=== PATIENT | male | born 1950 | race Caucasian/White ===

== ENCOUNTER 2024-07-24 04:15 | Inpatient (IN) | payer MEDICARE, SELFPAY ==
[2024-07-24] VITALS (18 sets, daily range): BP systolic 93–119; BP diastolic 53–70; PULSE 75–115; TEMP 36.6–37.3; O2SAT 90–98; BMI 29.2; BMI 27.0
--- NOTE | 2024-07-24 04:35 | PC.NURSE ---
complains of fever,chills, body aches and diarrhea onset 1or 2 days ago
[2024-07-24 04:48] LABS: Influenza Virus A Antigen Negative; Influenza Virus B Antigen Negative; Internal Control Within Normal Limits; SARS-CoV-2 Ag POSITIVE (NEGATIVE)
--- NOTE | 2024-07-24 05:08 | XR_ITS ---
The [address] [address] Patient Name: ANJELICA HOLLEY MRN: [id number] date: 1950 Sex: M Assigned Patient Location: ER Current Patient Location: ER Accession/Order Number: [id number] Exam Date: 07/24/2024 05:18 Report Date: 07/24/2024 05:42 At the request of: MOHAN VALENZUELA Procedure: XR chest 1V EXAM: XR chest 1V HISTORY: cough COMPARISON: None. TECHNIQUE: AP erect portable chest radiograph performed. FINDINGS: The trachea is unremarkable. There is mild prominence of the cardiac silhouette. There is mild left infrahilar interstitial infiltrate. There is no pleural effusion or pulmonary vascular congestion. There is no pneumothorax or acute osseous abnormality. XR/XR chest 1V IMPRESSION: There is mild left infrahilar interstitial infiltrate. Electronically authenticated by: REX HENSON Date: 07/24/2024 05:42
--- NOTE | 2024-07-24 05:38 | ED_ITS ---
HPI HPI - General Adult General Chief complaint: Fever Stated complaint: FLU LIKE SYMPTOMS Time Seen by Provider: 07/24/24 04:52 Source: patient and family ( at bedside.) Mode of arrival: walk-in Limitations: no limitations History of Present Illness HPI narrative: The patient is a 73-year-old gentleman who improved since 2 emergency department with weakness. It is also accompanied with a cough, poor appetite, inability to ambulate, and copious diarrhea. Patient resides at home with his . states it was difficult to get him into the car. She states that his symptoms began abruptly this morning when she awoke at 230. She stated that the gentleman had a subjective fever. She did not give him Tylenol or Motrin but rather transported him to the emergency department for further evaluation and care. Patient symptoms are moderate in severity. Unknown what makes them worse. Nothing makes them better. Patient did have the pneumococcal vaccine as well as the influenza vaccine but did not receive a COVID booster. He stated that they had not had an opportunity to get that yet. Patient denies any nausea or vomiting. states that he has had an extremely poor appetite. He did not eat or drink all day today. No rashes. No recent black, bloody, tarry stools. No complaint of chest pain or shortness of breath. No urinary symptoms. No known sick contacts or recent travel. Related Data Allergies Allergy/AdvReac Type Severity Reaction Status Date / Time No Known Drug Allergies Allergy Verified 07/24/24 04:31 Opioid HPI Opioid Management Most Recent Opioid Data: No Data to Display Review of Systems ROS Status of ROS 10 or more systems reviewed and unremark able except as noted in history and below [facility] Medical History Hypertension ?I10 - Essential (primary) hypertension (ICD-10) Diabetes ?E11.9 - Type 2 diabetes mellitus without complications (ICD-10) Social History Little interest or pleasure in doing things: not at all Feeling down, depressed, or hopeless: not at all Exam Narrative Exam Narrative: Prior to examining the patient, I have washed with hospital approved and provided Antiseptic Hand Skein Winding Operator and have also applied gloves.? Prior to touching the patient, I asked for consent to examine the patient.? General: Alert and oriented, well nourished, mild distress. Eye: PERRL, EOMI, normal conjunctiva. HENT: Normocephalic, normal hearing, moist oral mucosa, no scleral icterus, no sinus tenderness. Neck: Supple, non-tender, no carotid bruits, no JVD, no lymphadenopathy. Lungs: Clear to auscultation and percussion, non-labored respiration. No rhonchi, rales, wheezing Heart: Normal rate, regular rhythm, no murmur, gallop. +2 pitting edema to the midshin. Abdomen: Soft, non-tender, non-distended, normal bowel sounds, no masses. Musculoskeletal: Normal range of motion and strength, no tenderness or swelling. Skin: Skin is warm, dry and pink, no rashes or lesions. Neurologic: Awake, alert, and oriented X3, CN II-XII intact. Psychiatric: Cooperative, appropriate mood and affect.? Following the conclusion of the examination, I have washed my hands thoroughly after removing examination gloves. Constitutional Vital Signs, click to edit/add: Last Vital Signs Temp 99.2 F 07/24/24 05:28 Pulse 106 H 07/24/24 05:28 Resp 19 07/24/24 05:28 BP 107/61 07/24/24 05:28 Pulse Ox 92 L 07/24/24 05:28 O2 Del Method Room Air 07/24/24 04:31 Course Course Hospital Course: In summary the patient is a 73-year-old male who presents to the emergency d [facility] with profound weakness, cough, headache, poor appetite, diarrhea and inability to ambulate. Patient had a swab that was positive for COVID. The patient's symptoms began rather abruptly. Given he has comorbidities of hypertension and diabetes I think the patient is a Paxlovid candidate. He currently is receiving blood work at this time and 1/2 L normal saline bolus. Because the patient lives at home alone with his and his inability to ambulate and is very weak I think he is a fall risk. He would benefit from a social work consult, PT OT evaluation and observation. Reevaluation(s) Reevaluation #1: Left lower lobe infiltrate identified on chest x-ray. Blood cultures x 2, Rocephin 1 g IV piggyback and Zithromax 500 mg IV piggyback will be ordered. Time: 05:48 Reevaluation #2: Contacted by lab and the lactic acid is 2.5. Therefore, the patient officially meet sepsis criteria. But all of the metrics have already been ordered. The patient is not hypotensive and therefore at this time does not necessitate a 30 cc/kg bolus. He is given a modest 500 mL bolus to help with blood pressure support. But please note that the patient does have bilateral lower extremity edema and therefore I suspect that giving him a full bolus would inevitably cause him to go into congestive heart failure. We will continue to monitor. Time: 06:07 Consultations Consultation #1: I had an opportunity to discuss this case with internal medicine physician Dr. Bynum. She was extremely helpful in facilitating the disposition of this patient. Time: 06:15 Vital Signs Vital signs: Vital Signs Temperature 98.6 F 07/24/24 04:31 Pulse Rate 115 H 07/24/24 04:31 Respiratory Rate 19 07/24/24 04:31 Blood Pressure 114/68 07/24/24 04:31 Pulse Oximetry 98 07/24/24 04:31 Oxygen Delivery Method Room Air 07/24/24 04:31 Temperature 99.2 F 07/24/24 05:28 Pulse Rate 106 H 07/24/24 05:28 Respiratory Rate 19 07/24/24 05:28 Blood Pressure 107/61 07/24/24 05:28 Pulse Oximetry 92 L 07/24/24 05:28 Oxygen Delivery Method Room Air 07/24/24 04:31 Medical Decision Making [facility] Narrative Medical decision making narrative: 73-year-old male presents with extreme fatigue, fever, weakness, cough, copious diarrhea. cannot take care of him. Differential Diagnosis Differential Diagnosis: Influenza, COVID, pneumonia, urinary tract infection, sepsis Medical Records Medical records reviewed: Yes I reviewed the patient's medical records Lab Data Lab results reviewed: Yes I reviewed the patient's lab results Labs: Lab Results 07/24/24 07/24/24 Range/Units 04:24 05:35 WBC 14.1 H (4.0-11.0) 10^3/uL RBC 4.44 L (4.70-6.10) 10^6/uL Hgb 15.2 (14.0-18.0) g/dL Hct 43.6 (42.0-54.0) % MCV 98.2 H (80.0-94.0) fL MCH 34.2 H (25.9-34.0) pg MCHC 34.9 (29.9-35.2) g/dL RDW 13.1 (11.0-15.0) % Plt Count 225 (150-450) 10^3/uL MPV 10.0 (9.5-13.5) fL Seg Neuts % (Manual) 89.0 H (43.0-75.0) Band Neutrophils % 4.0 (0-5) % Lymphocytes % (Manual) 2.0 L (20.5-60.0) % Monocytes % (Manual) 5.0 (1.7-12.0) % Eosinophils % (Manual) 0.0 L (0.9-7.0) % Basophils % (Manual) 0.0 L (0.2-2.0) % Neutrophils # (Manual) 12.54 H (1.4-6.5) 10^3/uL Band Neutrophils # 0.6 H (0.0-0.3) 10^3/uL Lymphocytes # (Manual) 0.28 L (1.20-3.80) 10^3/uL Monocytes # (Manual) 0.70 (0.30-0.80) 10^3/uL Eosinophils # (Manual) 0.00 (0.00-0.70) 10^3/uL Basophils # (Manual) 0.00 (0.00-0.10) 10^3/uL Toxic Vacuolation 1+ Sodium 134 L (136-145) mmol/L Potassium 4.4 (3.5-5.1) mmol/L Chloride 99 (98-107) mmol/L Carbon Dioxide 22.5 (21.0-32.0) mmol/L Anion Gap 16.9 BUN 27.0 H (7.0-18.0) mg/dL Creatinine 1.43 H (0.70-1.30) mg/dL Est GFR ( Amer) 59 L (>=60 mL/min/1.73m^2) Est GFR (Non-Af Amer) 49 L (>=60 mL/min/1.73m^2) BUN/Creatinine Ratio 18.9 Glucose 264 H (74-106) mg/dL Lactate 2.5 H* (0.4-2.0) mmol/L Calcium 9.3 (8.5-10.1) mg/dL Magnesium 1.9 (1.8-2.4) mg/dL Total Bilirubin 0.8 (0.2-1.0) mg/dL AST 45 H (15-37) U/L ALT 61 (16-63) U/L Alkaline Phosphatase 251 H (46-116) U/L Total Protein 7.3 (6.4-8.2) g/dL Albumin 3.3 L (3.4-5.0) g/dL Globulin 4.0 g/dL Albumin/Globulin Ratio 0.8 Influenza Type A Ag Negative Influenza Type B Ag Negative SARS-CoV-2 Ag (CV2AG) Positive A (NEGATIVE) Imaging Data Chest x-ray: Attestation: I have reviewed the pertinent imaging results. Radiologist's impression: ITS Impressions Chest X-Ray 07/24/24 05:08 IMPRESSION: There is mild left infrahilar interstitial infiltrate. Electronically authenticated by: REX HENSON Date: 07/24/2024 05:42 Discharge Plan Discharge Chief Complaint: Fever Clinical Impression: Left lower lobe pneumonia, COVID, Sepsis Patient Disposition: Admitted As Inpatient Time of Disposition Decision: 05:49 Condition: Fair
[2024-07-24 05:44] LABS: Hematocrit 43.6 % (42.0-54.0); Hemoglobin 15.2 g/dL (14.0-18.0); Mean Corpuscular HGB Conc 34.9 g/dL (29.9-35.2); Mean Corpuscular Hemoglobin 34.2 pg (25.9-34.0); Mean Corpuscular Volume 98.2 fL (80.0-94.0); Platelet Count 225 10^3/uL (150-450); Red Blood Count 4.44 10^6/uL (4.70-6.10); Red Cell Distribution Width 13.1 % (11.0-15.0); White Blood Count 14.1 10^3/uL (4.0-11.0)
[2024-07-24] MEDS: 0.9 % SODIUM CHLORIDE 500 ML IV (05:47)
[2024-07-24 05:59] LABS: Alanine Aminotransferase 61 U/L (16-63); Albumin Globulin Ratio 0.8; Albumin Level 3.3 g/dL (3.4-5.0); Alkaline Phosphatase 251 U/L (46-116); Anion Gap 16.9; Aspartate Amino Transferase 45 U/L (15-37); BUN Creatinine Ratio 18.9; Bilirubin Total 0.8 mg/dL (0.2-1.0); Calcium 9.3 mg/dL (8.5-10.1); Carbon Dioxide 22.5 mmol/L (21.0-32.0); Chloride 99 mmol/L (98-107); Estimated GFR (African America 59 (>=60 mL/min/1.73m^2); Estimated GFR (Non-African Ame 49 (>=60 mL/min/1.73m^2); Glucose 264 mg/dL (74-106); Magnesium 1.9 mg/dL (1.8-2.4); Potassium 4.4 mmol/L (3.5-5.1); Sodium 134 mmol/L (136-145); Total Protein 7.3 g/dL (6.4-8.2)
[2024-07-24 06:05] LABS: Band Neutrophils Absolute 0.6 10^3/uL (0.0-0.3); Lymphocytes Absolute Manual 0.28 10^3/uL (1.20-3.80); Segmented Neut Absolute Manual 12.54 10^3/uL (1.4-6.5); Toxic Vacuolation 1+
[2024-07-24 06:06] LABS: Lactate/Lactic Acid 2.5 mmol/L (0.4-2.0)
[2024-07-24] MEDS: CEFTRIAXONE 1,000 MG in 0.9 % SODIUM CHLORIDE 50 ML 100 MG IV (06:12)
--- NOTE | 2024-07-24 08:05 | PM.HP ---
HPI H&P: HPI History of Present Illness Chief complaint: LEFT LOWER LOBE PNEUMONIA, COVID Narrative: Patient is a 73 y.o white male with past medical history of Non-insulin dependent type 2 diabetes, hypertension, HLD who presented to the ER early this morning with increased weakness, body aches, fevers, chills and diarrhea. He also has not eaten much in the last few days. His weakness leaves him not able to ambulate. He also reports a cough, nasal congestion and some mild shortness of breath. Symptoms started several days ago. He has been having many bowel movements daily 6-7. He has chronic ankle edema. No known history of heart failure. 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 ER findings: WBCs 14.1, Lactate 2.5, Na 134, Cr 1.43, BUN 27, Mag 1.9, Covid test positive; Chest Xray showed left infrahilar infiltrate. Patient had temp 99.2, RR 20, Pulse 115 and he was saturating 98% on room air. Patient was given Azithromycin and rocephin, Gentle fluid bolus due to lower ext edema. He was admitted for Sepsis secondary to Covid 19 pneumonia, to the hospitalist service for further plan of care. Opioid HPI Opioid Management Most Recent Pain and Opioid Data: Last Pain Assessment 07/24/24 13:00 Last ORT Total Score 0 07/24/24 06:50 07/24/24 Last ORT Risk Category Low Risk 07/24/24 06:50 07/24/24 Review of Systems ROS Narrative ROS: a complete review of systems were reviewed with patient and are positive as below or listed in History of Chief Complaint. General:fever, chills, no night sweats Head: no headache, trauma, visual changes, nausea or vomiting Skin: no reported rashes, itching or sores Eyes: no blurriness of vision Ears: no reported hearing loss, vertigo, earache, or tinnitus Throat: no sore throat, hoarseness, swelling of neck, or tongue pain Heart: no chest pain Lungs:shortness of breath and cough GI: diarrhea and vomiting/nausea Urinary: no urinary urgency, frequency or pain Neuro: no numbness or tingling HEM: no bleeding issues or bruising ENDO: no thyroid problems Psych: no anxiety or depression [facility] Medical History (Updated 07/24/24 @ 14:14 by Alyssa Bynum DO) BPH (benign prostatic hyperplasia) ?N40.0 - Benign prostatic hyperplasia without lower urinary tract symptoms (ICD-10) Hypertension ?I10 - Essential (primary) hypertension (ICD-10) Diabetes ?E11.9 - Type 2 diabetes mellitus without complications (ICD-10) Social History Highest level of school completed/degree received: some college, no degree Little interest or pleasure in doing things: not at all Feeling down, depressed, or hopeless: not at all Meds Home Medications and Allergies Home Medications ?Medication ?Instructions ?Recorded ?Confirmed ?Type acyclovir 200 mg capsule 200 mg PO TID 07/24/24 07/24/24 History aspirin 81 mg tablet,delayed 81 mg PO DAILY 07/24/24 07/24/24 History release coenzyme Q10 100 mg capsule (Co 100 mg PO DAILY 07/24/24 07/24/24 History Q-10) cyproheptadine 4 mg tablet 2 mg PO .qhs 07/24/24 07/24/24 History empagliflozin 25 mg tablet 25 mg PO QAM 07/24/24 07/24/24 History (Jardiance) losartan 25 mg tablet (Cozaar) 25 mg PO DAILY 07/24/24 07/24/24 History meclizine 25 mg tablet 25 mg PO .q8 PRN dizziness 07/24/24 07/24/24 History metformin 850 mg tablet 850 mg PO DAILY 07/24/24 07/24/24 History metoprolol tartrate 25 mg tablet 25 mg PO BID 07/24/24 07/24/24 History multivitamin with minerals-folic 1 tab PO DAILY 07/24/24 07/24/24 History acid 80 mcg chewable tablet (Centrum Adult 50 Plus) pravastatin 10 mg tablet 10 mg PO DAILY 07/24/24 07/24/24 History tamsulosin 0.4 mg capsule (Flomax) 0.4 mg PO DAILY 07/24/24 07/24/24 History Allergies Allergy/AdvReac Type Severity Reaction Status Date / Time No Known Drug Allergies Allergy Verified 07/24/24 04:31 Exam Narrative Exam Narrative: General: Patient is alert, and oriented to person, place and time with normal affect, proper hygiene, just very tired Skin: no visible rashes, or ulcers Head: atraumatic, acephalic Eyes: PERRLA, no nystagmus present, conjunctiva clear, no scleral icterus Ears: normal gross auditory acuity Nose: symmetric, no discharge, no maxillary or frontal sinus tenderness Mouth/Throat: no dentition Neck: no masses palpated, normal thyroid Heart: Normal rate and rhythm, no murmurs/rubs/gallops Lungs: no audible wheezes, crackles and normal breath sounds all lung steele Abdomen: Normal audible bowel sounds, no distension, No palpable masses, no organomegaly, no rebound/guarding/ or rigidity Musculoskeletal: no swelling bilateral lower extremities other than localized swelling in both ankles, no pitting Neuro: CN II-X grossly intact Constitutional Vital Signs, click to edit/add: Last Vital Signs Temp 98.7 F 07/24/24 06:50 Pulse 98 H 07/24/24 06:50 Resp 18 07/24/24 06:50 BP 117/70 07/24/24 06:50 Pulse Ox 98 07/24/24 06:50 O2 Del Method Room Air 07/24/24 06:50 Results Labs Labs: Short CBC 07/24/24 Range/Units 05:35 WBC 14.1 H (4.0-11.0) 10^3/uL Hgb 15.2 (14.0-18.0) g/dL Hct 43.6 (42.0-54.0) % Plt Count 225 (150-450) 10^3/uL BMP 07/24/24 05:35 Sodium 134 L Potassium 4.4 Chloride 99 Carbon Dioxide 22.5 BUN 27.0 H Creatinine 1.43 H Glucose 264 H Calcium 9.3 Liver Function 07/24/24 Range/Units 05:35 Total Bilirubin 0.8 (0.2-1.0) mg/dL AST 45 H (15-37) U/L ALT 61 (16-63) U/L Alkaline Phosphatase 251 H (46-116) U/L Albumin 3.3 L (3.4-5.0) g/dL Assessment and Plan Assessment and Plan (1) Severe sepsis with acute organ dysfunction: Assessment and Plan: Leukocytosis, Tachycardia, increased respiratory rate and elevated Lactate to 2.5. Blood cultures were drawn. Fluid bolus given. ER gave him Rocephin and Azithromycin. Paient tested postitive for Covid 19. Flu negative. Continue with LR @75 cc/hr. (2) COVID: Assessment and Plan: monitor oxygen requirement closely. Currently maintaining on room air. No underlying lung issues. (3) Left lower lobe pneumonia: Assessment and Plan: will treat for secondary bacterial cause with Rocephin and Azithromycin, OPEP and duonebs as needed. Qualifiers: Pneumonia type: due to unspecified organism Qualified Code(s): J18.9 - Pneumonia, unspecified organism (4) JACOBO (acute kidney injury): Assessment and Plan: cr was 1.43, bun 27, uncertain baseline (5) Hypertension: Assessment and Plan: resume losartan, metoprolol Qualifiers: Hypertension type: primary hypertension Qualified Code(s): I10 - Essential (primary) hypertension (6) Diabetes: Assessment and Plan: continu eSSI as needed. Qualifiers: Diabetes mellitus complication status: without complication Diabetes mellitus long term acute care registered nurse insulin use: without long term acute care registered nurse use Diabetes mellitus type: type 2 Qualified Code(s): E11.9 - Type 2 diabetes mellitus without complications (7) BPH (benign prostatic hyperplasia): Assessment and Plan: continue flomax Qualifiers: Lower urinary tract symptom presence: unspecified whether lower urinary tract symptoms present Qualified Code(s): N40.0 - Benign prostatic hyperplasia without lower urinary tract symptoms (8) Diarrhea: Assessment and Plan: will check stool C diff and cultures, will place on Bentyl as needed. Qualifiers: Diarrhea type: presumed infectious Qualified Code(s): R19.7 - Diarrhea, unspecified Plan patient is a full code Heparin for DVT prophylaxis Patient is inpatient status and is expected to cross 2 midnights to treat his sepsis secondary to COVID pneumonia.
[2024-07-24] MEDS: AZITHROMYCIN 500 MG in 0.9 % SODIUM CHLORIDE 250 ML 250 MG IV (09:29)
[2024-07-24] MEDS: HEPARIN SODIUM (PORCINE) 5,000 UNIT/ML VIAL 5000 UNIT SUBQ ×2 (09:30→21:08)
[2024-07-24 09:50] LABS: Lactate/Lactic Acid 2.3 mmol/L (0.4-2.0)
[2024-07-24] MEDS: ALBUTEROL SULFATE 200 PUFF/6.7 GM INHALER IH ×3 (10:30→23:10)
--- NOTE | 2024-07-24 11:00 | CM.NOTE ---
Rounds made with Dr. Bynum, discussed plan of care with pt and . Dr. Bynum will start IV fluids today, no discharge. PT and OT will evaluate pt.
--- NOTE | 2024-07-24 11:00 | SWNOTE1 ---
SW met with pt's outside of room. Pt sleeping at this time. Pt does not use any DME at home. Pt is independent and no services coming in at this time. Pt's has no concerns about discharge once pt is medically stable. SW reviewed OT note, no needs at this time. No anticipated discharge needs. SW to follow as needed.
--- NOTE | 2024-07-24 11:05 | SWNOTE1 ---
Important Message from [employer] reviewed and discussed with patient's . Pt's verbalized understanding and signed the form. Original given to patient's and copy placed in patient?s chart.
[2024-07-24] MEDS: CANAGLIFLOZIN 100 MG TABLET 300 MG PO (14:59)
[2024-07-24] MEDS: LACTATED RINGER'S SOLUTION 1,000 ML 75 ML IV (14:59)
[2024-07-24] MEDS: LOSARTAN POTASSIUM 25 MG TABLET PO (15:00)
[2024-07-24] MEDS: ACYCLOVIR 200 MG CAPSULE PO ×2 (15:00→21:09)
[2024-07-24] MEDS: ASPIRIN 81 MG TABLET.DR PO (15:00)
[2024-07-24] MEDS: ATORVASTATIN CALCIUM 10 MG TABLET PO (15:00)
[2024-07-24] MEDS: TAMSULOSIN HCL 0.4 MG CAPSULE PO (15:00)
[2024-07-24] MEDS: METOPROLOL TARTRATE 25 MG TABLET PO (21:08)
[2024-07-24] MEDS: CYPROHEPTADINE HCL 4 MG TABLET 2 MG PO (21:25)
[2024-07-25] VITALS (13 sets, daily range): BP systolic 84–104; BP diastolic 53–62; PULSE 67–96; TEMP 36.2–36.8; O2SAT 91–98
[2024-07-25] MEDS: LACTATED RINGER'S SOLUTION 1,000 ML 75 ML IV (03:45)
[2024-07-25] MEDS: ALBUTEROL SULFATE 200 PUFF/6.7 GM INHALER IH ×2 (04:22→11:22)
[2024-07-25] MEDS: ACYCLOVIR 200 MG CAPSULE PO (05:47)
[2024-07-25] MEDS: CEFTRIAXONE 1,000 MG in 0.9 % SODIUM CHLORIDE 50 ML 100 MG IV (05:49)
[2024-07-25 06:08] LABS: Basophils Percent Auto 0.4 % (0.2-2.0); Eosinophils Absolute Auto 0.1 10^3/uL (0.0-0.7); Eosinophils Percent Auto 1.5 % (0.9-7.0); Hematocrit 39.5 % (42.0-54.0); Hemoglobin 13.5 g/dL (14.0-18.0); Immature Granulocytes Abs Auto 0.03 10^3/uL (0.00-0.03); Immature Granulocytes Pct Auto 0.4 % (0.0-0.5); Lymphocytes Percent Auto 11.8 % (20.5-60.0); Mean Corpuscular HGB Conc 34.2 g/dL (29.9-35.2); Mean Corpuscular Hemoglobin 34.2 pg (25.9-34.0); Mean Platelet Volume 9.9 fL (9.5-13.5); Monocytes Absolute Auto 0.7 10^3/uL (0.3-0.8); Monocytes Percent Auto 8.8 % (1.7-12.0); Neutrophils Absolute Auto 6.2 10^3/uL (1.4-6.5); Neutrophils Percent Auto 77.1 % (43.0-75.0); Platelet Count 175 10^3/uL (150-450); Red Blood Count 3.95 10^6/uL (4.70-6.10); Red Cell Distribution Width 13.2 % (11.0-15.0)
[2024-07-25 06:23] LABS: Alanine Aminotransferase 35 U/L (16-63); Albumin Globulin Ratio 0.8; Albumin Level 2.7 g/dL (3.4-5.0); Alkaline Phosphatase 170 U/L (46-116); Anion Gap 11.7; Aspartate Amino Transferase 31 U/L (15-37); BUN Creatinine Ratio 18.8; Bilirubin Total 0.5 mg/dL (0.2-1.0); Carbon Dioxide 26.1 mmol/L (21.0-32.0); Chloride 107 mmol/L (98-107); Estimated GFR (African America >60 (>=60 mL/min/1.73m^2); Estimated GFR (Non-African Ame >60 (>=60 mL/min/1.73m^2); Globulin 3.4 g/dL; Glucose 140 mg/dL (74-106); Potassium 3.8 mmol/L (3.5-5.1); Sodium 141 mmol/L (136-145); Total Protein 6.1 g/dL (6.4-8.2)
[2024-07-25] MEDS: ATORVASTATIN CALCIUM 10 MG TABLET PO (09:13)
[2024-07-25] MEDS: TAMSULOSIN HCL 0.4 MG CAPSULE PO (09:13)
[2024-07-25] MEDS: CANAGLIFLOZIN 100 MG TABLET 300 MG PO (09:13)
[2024-07-25] MEDS: ASPIRIN 81 MG TABLET.DR PO (09:13)
[2024-07-25] MEDS: AZITHROMYCIN 500 MG in 0.9 % SODIUM CHLORIDE 250 ML 250 MG IV (09:13)
[2024-07-25] MEDS: HEPARIN SODIUM (PORCINE) 5,000 UNIT/ML VIAL 5000 UNIT SUBQ (09:14)
--- NOTE | 2024-07-25 09:36 | PM.DS1 ---
DS: Providers Provider Date of admission: 07/24/24 06:36 Primary care physician: WESLEY KAY Attending physician on admission: Alyssa Bynum Consults: 07/24/24 07:54 Occupational Therapy Eval and Treat Routine Reason for consultation: weakness Has provider been notified: No Physical Therapy Eval and Treat Routine Reason for consultation: weakness Has provider been notified: No Discharging clinician: Alyssa Bynum DS: Diagnosis Discharge Diagnosis (1) Severe sepsis with acute organ dysfunction: (2) COVID: (3) Left lower lobe pneumonia: Qualifiers: Pneumonia type: due to unspecified organism Qualified Code(s): J18.9 - Pneumonia, unspecified organism (4) JACOBO (acute kidney injury): (5) Hypertension: Qualifiers: Hypertension type: primary hypertension Qualified Code(s): I10 - Essential (primary) hypertension (6) Diabetes: Qualifiers: Diabetes mellitus complication status: without complication Diabetes mellitus [facility] insulin use: without buttermaker helper use Diabetes mellitus type: type 2 Qualified Code(s): E11.9 - Type 2 diabetes mellitus without complications (7) BPH (benign prostatic hyperplasia): Qualifiers: Lower urinary tract symptom presence: unspecified whether lower urinary tract symptoms present Qualified Code(s): N40.0 - Benign prostatic hyperplasia without lower urinary tract symptoms (8) Diarrhea: Qualifiers: Diarrhea type: presumed infectious Qualified Code(s): R19.7 - Diarrhea, unspecified DS: Summary Hospital Course Hospital Course: Patient is a 73 y.o white male with past medical history of Non-insulin dependent type 2 diabetes, hypertension, HLD who presented to the ER yesterday with increased weakness, body aches, fevers, chills and diarrhea. He also has not eaten much in the last few days. His weakness leaves him not able to ambulate. He also reports a cough, nasal congestion and some mild shortness of breath. Symptoms started several days ago. He has been having many bowel movements daily 6-7. He has chronic ankle edema. No known history of heart failure. 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 ER findings: WBCs 14.1, Lactate 2.5, Na 134, Cr 1.43, BUN 27, Mag 1.9, Covid test positive; Chest Xray showed left infrahilar infiltrate. Patient had temp 99.2, RR 20, Pulse 115 and he was saturating 98% on room air. Patient was given Azithromycin and rocephin, Gentle fluid bolus due to lower ext edema. He was admitted for Sepsis secondary to Covid 19 pneumonia, to the hospitalist service for further plan of care. He received IVF, and kidney function is normal today cr 1.01. His WBCs 8.0. He is afebrile and is not requiring oxygen. Patient refused home health services at discharge. I will treat him with zpak x 6 days , albuterol inhaler, and dicyclomine for diarrhea. He may return to the ER with any worsening signs or symptoms. Discussed with that he may be more tired the next few days from being in the hospital. Patient has close PCP follow up. Status at Discharge Functional status at discharge: independent ambulation Overall status at discharge: patient is progressing back to baseline Time Spent with Patient Time attestation: Total time spent providing and/or coordinating discharge services: Time spent: greater than 30 minutes Exam Narrative Exam Narrative: General: Patient is alert, and oriented to person, place and time with normal affect, proper hygiene, just very tired Skin: no visible rashes, or ulcers Head: atraumatic, acephalic Eyes: PERRLA, no nystagmus present, conjunctiva clear, no scleral icterus Ears: normal gross auditory acuity Nose: symmetric, no discharge, no maxillary or frontal sinus tenderness Mouth/Throat: no dentition Neck: no masses palpated, normal thyroid Heart: Normal rate and rhythm, no murmurs/rubs/gallops Lungs: no audible wheezes, crackles and normal breath sounds all lung steele Abdomen: Normal audible bowel sounds, no distension, No palpable masses, no organomegaly, no rebound/guarding/ or rigidity Musculoskeletal: no swelling bilateral lower extremities other than localized swelling in both ankles, no pitting Neuro: CN II-X grossly intact Constitutional Vital Signs, click to edit/add: Last Vital Signs Temp 97.1 F L 07/25/24 08:00 Pulse 73 07/25/24 08:00 Resp 18 07/25/24 08:00 BP 104/60 07/25/24 08:00 Pulse Ox 95 07/25/24 08:00 O2 Del Method Room Air 07/25/24 08:00 DS: Data Data Completed and Pending Labs on day of discharge: Labs from last 24 hours 07/25/24 07/24/24 05:50 09:24 WBC 8.0 RBC 3.95 L Hgb 13.5 L Hct 39.5 L MCV 100.0 H MCH 34.2 H MCHC 34.2 RDW 13.2 Plt Count 175 MPV 9.9 Neut % (Auto) 77.1 H Lymph % (Auto) 11.8 L Dillon % (Auto) 8.8 Eos % (Auto) 1.5 Baso % (Auto) 0.4 Neut # (Auto) 6.2 Lymph # (Auto) 1.0 L Dillon # (Auto) 0.7 Eos # (Auto) 0.1 Baso # (Auto) 0.0 Abs Immat Gran (auto) 0.03 Imm/Tot Granulo (auto) 0.4 Sodium 141 Potassium 3.8 Chloride 107 Carbon Dioxide 26.1 Anion Gap 11.7 BUN 19.0 H Creatinine 1.01 Est GFR ( Amer) >60 Est GFR (Non-Af Amer) >60 BUN/Creatinine Ratio 18.8 Glucose 140 H Lactate 2.3 H* Calcium 8.0 L Total Bilirubin 0.5 AST 31 ALT 35 Alkaline Phosphatase 170 H Total Protein 6.1 L Albumin 2.7 L Globulin 3.4 Albumin/Globulin Ratio 0.8 Discharge Plan Discharge Disposition: Home, Self-Care Condition: Fair Discharge Medications: New albuterol sulfate 90 mcg/actuation Hfa Aerosol Inhaler 2 puff inhalation Q6H PRN (Reason: Shortness Of Breath Or Wheezing) 30 Days Qty: 1 0RF dicyclomine 10 mg Capsule 10 mg PO BID PRN (Reason: Diarrhea) 5 Days Qty: 10 0RF azithromycin [Zithromax] 250 mg tablet See Rx Instructions .ROUTE .COMPLEX Qty: 6 0RF Rx Instructions: For 250 mg dose pack: take 500 mg today (day 1), then 250 mg for 4 days (days 2-5) Continued cyproheptadine 4 mg tablet 2 mg PO .qhs acyclovir 200 mg capsule 200 mg PO TID Jardiance 25 mg tablet 25 mg PO QAM meclizine 25 mg tablet 25 mg PO .q8 PRN (Reason: dizziness) metformin 850 mg tablet 850 mg PO DAILY Rx Instructions: take 3 tablets by mouth in the evening losartan [Cozaar] 25 mg tablet 25 mg PO DAILY pravastatin 10 mg tablet 10 mg PO DAILY metoprolol tartrate 25 mg tablet 25 mg PO BID tamsulosin [Flomax] 0.4 mg capsule 0.4 mg PO DAILY aspirin 81 mg tablet,delayed release (DR/EC) 81 mg PO DAILY Centrum Adult 50 Plus 80 mcg tablet,chewable 1 tab PO DAILY coenzyme Q10 [Co Q-10] 100 mg capsule 100 mg PO DAILY Activity: increase activity as tolerated Diet: advance to your usual diet Print Language: [place] Forms: Portal Instructions Follow Up Appointments: @ 1pm with Dr. Kay [phone] Return to work Wednesday07/30/24
--- NOTE | 2024-07-25 10:23 | REH.PTDLY ---
Physical Therapy Daily Note PT Daily Note/Assess Start: 07/25/24 10:16 Freq: Status: Active Protocol: Document 07/25/24 10:05 KATIE (Rec: 07/25/24 10:23 KATIE [id number]) Physical Therapy Daily Note/Assessment Time In 09:45 Time Out 10:07 Subjective Pt agreeable to therapy. No current complaints. Therapeutic Exercise 8 Minutes (minutes) Therapeutic Exercise 1 Units Therapeutic Exercise Instructed in B LE seated exs 10x ea with LAQ, marching Treatment , hip abd step outs. Standing B LE exs 10x ea with HR, mini squats, marching, and hip abd with UE support to maintain balance. Therapeutic Activity 4 Minutes (minutes) Therapeutic Activity 0 Units Therapeutic Activity Ind with supine to sit transfers. Sit to stand Comments transfers SBA. Mild dizziness noted upon standing, but subsides. Gait with IV pole 15 feet to restroom. Pt is Ind with bathroom transfers. Gait training in room SBA 55 feet with pt pushing IV pole, no LOB being noted. Total Therapy 12 Minutes Total Physical 1 Therapy Units Daily Note Summary Pt does well with rx today. Utilizes UE support with gait on IV pole for support. Pt denies any fatigue with standing exs. No complaints post rx.
--- NOTE | 2024-07-25 10:34 | SWNOTE1 ---
SW stopped back in to speak with pt about home health services. SW advised pt and that physical therapy did recommend HH. Pt asked for what? SW explained that it would be for strengthening and for a short amount of time. Pt stated he does not feel he needs it. SW explained it would only be a few times of the week for 30-45 minutes. At this time pt is refusing HH services. SW advised pt and that pt's PCP can set it up if he does change his mind once he is home. Pt and voice understanding.
--- NOTE | 2024-07-25 10:50 | CM.NOTE ---
Rounds made with Dr. Bynum, pt will discharge to home today. SW states she had conversation with pt and he refuses any HH services. Pt will f/u with PCP in one week.
--- NOTE | 2024-07-25 11:29 | PC.NURSE ---
RN and environmental services in to discuss the finding of a bed bug on the patient. Handout and education given to and patient on how to remove bed bugs from the home and precautions to take. Patient and verbalize understanding and deny any further questions or needs at this time.
--- NOTE | 2024-07-27 15:13 | CM.DCFOLLOWU ---
1st attempt 07/27/24, no answer
--- NOTE | 2024-07-31 12:15 | CM.DCFOLLOWU ---
2nd attempt 07/31/24, no answer
--- NOTE | 2024-08-01 14:13 | CM.DCFOLLOWU ---
3rd attempt 08/01/24, no answer
== END 2024-07-25 14:25 | disposition home or self-care (01) | DRG 871 ==
LOC: ER 06:31 → MS 06:41
PROVIDERS: Admitting Provider Family Medicine; Emergency Provider Emergency Medicine; PCP Family Medicine; Visit Provider Family Medicine
DX: A41.89 Other specified sepsis (principal); J12.82 Pneumonia due to coronavirus disease 2019; U07.1 COVID-19; N17.9 Acute kidney failure, unspecified; R65.20 Severe sepsis without septic shock; E11.9 Type 2 diabetes mellitus without complications; I10 Essential (primary) hypertension; E78.5 Hyperlipidemia, unspecified; N40.0 Benign prostatic hyperplasia without lower urinary tract symptoms; Z79.82 Long term (current) use of aspirin; Z79.84 Long term (current) use of oral hypoglycemic drugs; R19.7 Diarrhea, unspecified; R60.0 Localized edema; Z79.899 Other long term (current) drug therapy
CPT/HCPCS: 36415; 71045; 80053; 83605; 83735; 83880; 85007; 85025; 85027; 87040; 87045; 87046; 87427; 87493; 87804; 87811; 94640; 94667; 94668; 94761; 96365; 97110; 97161; 97165; 99285; J0456; J0696; J1644